=== PATIENT | male | born 1940 | race Caucasian/White ===

== ENCOUNTER 2019-02-05 19:32 | Emergency (ER) | payer MEDICARE, SELFPAY ==
[2019-02-05 19:45] VITALS: BP 197/87; PULSE 77; RESP 18; TEMP 36.9; O2SAT 94
--- NOTE | 2019-02-05 20:01 | DI.RAD_ITS ---
SYMPTOMS/DIAGNOSIS: COUGH, WHEEZE, SOB CHEST: Frontal and lateral views. Comparison 10/09/14. The heart size and pulmonary vasculature are within normal limits. The lungs are clear and well expanded. No effusions or pneumothoraces are identified. Degenerative changes are seen in the spine. The lungs do appear to be hyperinflated suggesting underlying COPD. IMPRESSION: No acute pulmonary process.
--- NOTE | 2019-02-05 20:04 | ED.GENADUL_ITS ---
Discharge Plan Disposition Patient Disposition: HOME Condition: Improving Discharge Details Chief Complaint: RespSymp Clinical Impression: COPD with acute exacerbation Primary Care Provider: Jinny Harper ED Provider: Jefferson Greenberg Home Meds and New Rx's Prescriptions: No Action Gold Allen Medicated 0.15-1 % powder TP PRNRF: 0 Shingrix (PF) 50 mcg/0.5 mL suspension for reconstitution 50 mcg IM ONCE Qty: 1 RF: 1 diphenhydramine HCl 25 MG capsule 1 - 2 cap PO PRN PRNRF: 0 albuterol sulfate [Ventolin HFA] 8 GM HFA aerosol inhaler 2 puff Inhalation QID PRNRF: 0 flunisolide 25 ML spray,non-aerosol 1 spray NS BID PRNRF: 0 cyanocobalamin (vitamin B-12) [Vitamin B-12] 1,000 MCG tablet 1,000 mcg PO 2 X /wk RF: 0 acetaminophen [Acetaminophen Extra Strength] 500 MG tablet 2 tab PO PRN RF: 0 aspirin [Aspirin Low-Strength] 81 MG tablet,chewable 81 mg PO DAILY Qty: 100 RF: 3 simvastatin 40 MG tablet 40 mg PO DAILY RF: 0 calcipotriene 0.005 % cream 1 applic TP BID RF: 0 Medical Decision Making 78-year-old male with 2 weeks of progressive cough with congestion that has ranged from black to yellow. Somewhat improved with use of inhaler since seeing in the office on February 01. Arrives tonight with worsening cough and congestion. He has a room air sats of 94% and is diffusely wheezy throughout. Differential diagnosis includes COPD exacerbation, bronchitis, pneumonitis. [facility] x-ray obtained, patient given inhaled DuoNeb updraft and prednisone. Chest x-ray does not reveal infiltrate or evidence of pneumonitis. Patient improved with DuoNeb updraft. I will add a burst of prednisone, which I do not feel will affect his ongoing topical treatment of her rash with sustainability specialist. Given his changed his sputum and chills I do feel he merits antibiotics at this time we will start him on a course of doxycycline. He understands follow-up and return precautions. He is stable for discharge home at this time. He may benefit from outpatient follow-up pulmonary function testing. Note: Created with [employer] software, it teacher errors may be present HPI General Mode of arrival: ambulatory . Date/Time Provider Initiated Documentation: 02/05/19 19:51 . Limitations to Documentation: no limitations . Information obtained by: patient . History of Present Illness 78 year old M presents to the emergency department with the chief complaint of Worsening cough over 2 weeks, with yellow sputum production, chills, sob, described as moderate, Quality is described as dull and constant, and is localized to the chest. Patient reports no radiation. Patient started experiencing this day(s) and it has been constant. No relieving factors improve symptom(s), No exacerbating factors reported . Patient notes cough and fever/chills. Patient did receive the following treatments prior to arrival, other (Inhaler twice ) Related Data Home Medications Medication Instructions Recorded Confirmed acetaminophen [Acetaminophen Extra 2 tab PO PRN 12/15/12 02/01/19 Strength] albuterol sulfate [Ventolin HFA] 2 puff INHALATION QID PRN puff 12/15/12 02/01/19 cyanocobalamin (vitamin B-12) 1,000 mcg PO 2 X /wk 12/15/12 02/05/19 [Vitamin B-12] diphenhydramine HCl 1 - 2 cap PO PRN PRN 12/15/12 02/05/19 flunisolide 1 spray NS BID PRN spray 12/15/12 02/05/19 aspirin [Aspirin Low-Strength] 81 mg PO DAILY #100 tab-cap 04/01/16 02/01/19 simvastatin 40 mg PO DAILY tab-cap 07/08/16 02/05/19 menthol-zinc oxide 0.15 %-1 % powder TP PRN gm 12/27/18 02/01/19 topical powder varicella-zoster glycoE vacc-AS01B 50 mcg IM ONCE #1 each 12/27/18 02/05/19 adj(PF) 50 mcg/0.5 mL IM susp, kit calcipotriene 0.005 % topical cream 1 applic TP BID 01/28/19 02/05/19 Previous Rx's Medication Instructions Recorded varicella-zoster glycoE vacc-AS01B 50 mcg IM ONCE #1 each 12/27/18 adj(PF) 50 mcg/0.5 mL IM susp, kit Allergies Allergy/AdvReac Type Severity Reaction Status Date / Time hydrocortisone Allergy Intermediate Contact Verified 02/05/19 19:51 Dermatitis Latex, Natural Rubber Allergy Intermediate Contact Verified 02/05/19 19:51 Dermatitis pregabalin [From Lyrica] Allergy Intermediate erythema Verified 02/05/19 19:51 chlorhexidine Allergy Mild RASH Verified 02/05/19 19:51 cyclosporine AdvReac Intermediate hypertensio Verified 02/05/19 19:51 n niacin AdvReac Unknown Verified 02/05/19 19:51 sulfamethoxazole AdvReac Unknown Diarrhea Verified 02/05/19 19:51 [From Bactrim] trimethoprim [From Bactrim] AdvReac Unknown Diarrhea Verified 02/05/19 19:51 FREE TEXT Allergy Intermediate contact Uncoded 02/05/19 19:51 dermatitis General Stated Complaint: RespSymp MEGHA: 3 Review of Systems Review of Systems 8 systems reviewed and otherwise negative [facility] Medical History Anxiety (Chronic) Hernia (Chronic) High cholesterol (Chronic) Hypertension (Chronic) Surgical History Colonoscopy - IV Sedation (08/21/14) Endoscopic Carpal Tunnel release (04/14/17) Endoscopic Carpal Tunnel release (04/21/17) Family History Mother No problems noted. Father No problems noted. Sister Diabetes Sister No problems noted. Brother Diabetes Brother No problems noted. Brother No problems noted. Brother No problems noted. 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 Pleasant, well groomed, interactive. HEAD: Normocephalic, atraumatic ENT: Mucous membranes moist, oropharynx unremarkable, External ear exam unremarkable EYES: PERRL, EOMI NECK: Full ROM, no SAVANA, no menigismus CHEST/RESP: Nontender, diminished bilaterally with diffuse end expiratory wheeze CARDIOVASCULAR: RRR, no murmur, rub layla. 2+ Rad pulse bilateral ABDOMEN: Soft, nontender, no mass. +Bowel sounds EXT: Full ROM, no edema, no rash Neuro: Grossly normal neurologic exam, conversant, interactive. Psych: Speech fluent, thoughts congruent, affect normal Course Vital Signs Temperature 36.9 C 02/05/19 19:45 Pulse 77 02/05/19 19:45 Respiratory Rate 18 02/05/19 19:45 Blood Pressure 197/87 H 02/05/19 19:45 Pulse Oximetry 94 L 02/05/19 19:45 Temperature 36.9 C 02/05/19 19:45 Temperature Source Skin 02/05/19 19:45 Pulse 77 02/05/19 19:45 Respiratory Rate 18 02/05/19 19:45 Respiratory Effort 02/05/19 19:54 Blood Pressure 197/87 H 02/05/19 19:45 Pulse Oximetry 94 L 02/05/19 19:45 Pain Level 7 02/05/19 19:45
[2019-02-05 20:22] VITALS: PULSE 66; RESP 18; RESP 4; O2SAT 96
[2019-02-05] MEDS: Albuterol/Ipratropium 3 ML UPD VIAL UPD (20:22)
[2019-02-05] MEDS: predniSONE 20 MG TAB 60 MG PO (20:22)
--- NOTE | 2019-02-05 20:26 | DI.VRAD_ITS ---
EXAM: XR Chest, 2 Views EXAM DATE/TIME: 02/05/2019 8:02 PM CLINICAL HISTORY: 78 years old, male; Signs and symptoms; Cough and shortness of breath and wheezing; Patient HX: Cough, wheeze, SOB TECHNIQUE: Imaging protocol: XR of the chest, 2 views. COMPARISON: CR CHEST 2 VIEWS PA,LAT 10/09/2014 2:31 PM FINDINGS: Lungs: Pulmonary hyperaeration. Pleural space: Unremarkable. No pleural effusion. No pneumothorax. Heart/Mediastinum: Unremarkable. No cardiomegaly. Bones/joints: Degenerative changes of the thoracic spine without acute osseous abnormality. IMPRESSION: Pulmonary hyperaeration. Dictated and Authenticated by: Robby Felder MD. Ordering:BALJEET Paulino MD
[2019-02-05 21:07] VITALS: PULSE 77; O2SAT 99
== END 2019-02-05 21:07 | disposition home or self-care (01) ==
PROVIDERS: Emergency Provider Emergency Medicine; PCP Nurse Practitioner
DX: J44.1 Chronic obstructive pulmonary disease with (acute) exacerbation (principal); R06.02 Shortness of breath; R50.9 Fever, unspecified; I10 Essential (primary) hypertension
CPT/HCPCS: 94640; 99283; 71046; J7512; J7620

== ENCOUNTER 2019-02-07 06:44 | Emergency (ER) | payer MEDICARE, SELFPAY ==
[2019-02-07 06:50] VITALS: BP 177/91; PULSE 60; RESP 16; TEMP 36.3; O2SAT 99
--- NOTE | 2019-02-07 07:00 | W.ED.GENAD ---
Discharge Plan Disposition Patient Disposition: HOME Condition: Improving Discharge Details Chief Complaint: RashLesion Clinical Impression: Urticarial rash Primary Care Provider: Jinny Harper ED Provider: Jefferson Greenberg Home Meds and New Rx's Prescriptions: New amoxicillin-pot clavulanate 875-125 mg tablet 1 tab PO BID 10 Days Qty: 20 RF: 0 Continued Gold Allen Medicated 0.15-1 % powder TP PRNRF: 0 Shingrix (PF) 50 mcg/0.5 mL suspension for reconstitution 50 mcg IM ONCE Qty: 1 RF: 1 diphenhydramine HCl 25 MG capsule 1 - 2 cap PO PRN PRNRF: 0 albuterol sulfate [Ventolin HFA] 8 GM HFA aerosol inhaler 2 puff Inhalation QID PRNRF: 0 flunisolide 25 ML spray,non-aerosol 1 spray NS BID PRNRF: 0 cyanocobalamin (vitamin B-12) [Vitamin B-12] 1,000 MCG tablet 1,000 mcg PO 2 X /wk RF: 0 acetaminophen [Acetaminophen Extra Strength] 500 MG tablet 2 tab PO PRN RF: 0 aspirin [Aspirin Low-Strength] 81 MG tablet,chewable 81 mg PO DAILY Qty: 100 RF: 3 simvastatin 40 MG tablet 40 mg PO DAILY RF: 0 calcipotriene 0.005 % cream 1 applic TP BID RF: 0 prednisone 50 mg tablet 50 mg PO DAILY Qty: 5 RF: 0 Discontinued doxycycline hyclate 100 mg capsule 100 mg PO BID 10 Days Qty: 20 RF: 0 Discharge Instructions Instructions: Urticaria (ED) Additional Instructions: Stop the doxycycline. If you have persistent cough, develop a fever, begin the Augmentin as we discussed. Continue the regular medications. Continue the prescribed prednisone. May continue the use of Benadryl as needed. Return for any acute concern Medical Decision Making 78-year-old male who I saw in the emergency department 2 days ago for URI with COPD exacerbation. He was placed on prednisone and doxycycline. He states that he has had dramatic improvement of his cough and is not had any shortness of breath or wheezing. Since beginning the doxycycline he is noticed 1 day of bilateral upper extremity pruritic rash. No drooling or change to voice, no difficulty with swallowing. This may be sun sensitivity from the doxycycline or intolerance of the antibiotic. Discussed with him that I will have him stop the doxycycline, continue the prednisone, and he will be provided with a prescription for Augmentin should he have recurrent cough or fever. He understands the outpatient plan of care and is stable for discharge to home at this time. HPI General Mode of arrival: ambulatory. Date/Time Provider Initiated Documentation: 02/07/19 06:52. Limitations to Documentation: no limitations. Information obtained by: patient. History of Present Illness 78 year old M presents to the emergency department with the chief complaint of Bilateral arm rash, described as similar to prior episodes, Quality is described as constant, and is localized to the left, right and upper extremity. and it has been other (Improving). No relieving factors improve symptom(s), No exacerbating factors reported . Patient notes no other symptoms. and rash; denies cough. Patient did receive the following treatments prior to arrival, none Related Data Home Medications Medication Instructions Recorded Confirmed acetaminophen [Acetaminophen Extra 2 tab PO PRN 12/15/12 02/07/19 Strength] albuterol sulfate [Ventolin HFA] 2 puff INHALATION QID PRN puff 12/15/12 02/07/19 cyanocobalamin (vitamin B-12) 1,000 mcg PO 2 X /wk 12/15/12 02/07/19 [Vitamin B-12] diphenhydramine HCl 1 - 2 cap PO PRN PRN 12/15/12 02/07/19 flunisolide 1 spray NS BID PRN spray 12/15/12 02/07/19 aspirin [Aspirin Low-Strength] 81 mg PO DAILY #100 tab-cap 04/01/16 02/07/19 simvastatin 40 mg PO DAILY tab-cap 07/08/16 02/07/19 menthol-zinc oxide 0.15 %-1 % powder TP PRN gm 12/27/18 02/01/19 topical powder varicella-zoster glycoE vacc-AS01B 50 mcg IM ONCE #1 each 12/27/18 02/07/19 adj(PF) 50 mcg/0.5 mL IM susp, kit calcipotriene 0.005 % topical cream 1 applic TP BID 01/28/19 02/07/19 prednisone 50 mg PO DAILY #5 tab 02/05/19 02/07/19 amoxicillin-pot clavulanate 1 tab PO BID 10 Days #20 tab 02/07/19 Previous Rx's Medication Instructions Recorded varicella-zoster glycoE vacc-AS01B 50 mcg IM ONCE #1 each 12/27/18 adj(PF) 50 mcg/0.5 mL IM joce bowens prednisone 50 mg PO DAILY #5 tab 02/05/19 amoxicillin-pot clavulanate 1 tab PO BID 10 Days #20 tab 02/07/19 Allergies Allergy/AdvReac Type Severity Reaction Status Date / Time hydrocortisone Allergy Intermediate Contact Verified 02/07/19 06:54 Dermatitis Latex, Natural Rubber Allergy Intermediate Contact Verified 02/07/19 06:54 Dermatitis pregabalin [From Lyrica] Allergy Intermediate erythema Verified 02/07/19 06:54 chlorhexidine Allergy Mild RASH Verified 02/07/19 06:54 cyclosporine AdvReac Intermediate hypertensio Verified 02/07/19 06:54 n niacin AdvReac Unknown Verified 02/07/19 06:54 sulfamethoxazole AdvReac Unknown Diarrhea Verified 02/07/19 06:54 [From Bactrim] trimethoprim [From Bactrim] AdvReac Unknown Diarrhea Verified 02/07/19 06:54 FREE TEXT Allergy Intermediate contact Uncoded 02/07/19 06:54 dermatitis General Stated Complaint: RashLesion MEGHA: 4 Review of Systems Review of Systems 6 systems reviewed and otherwise negative [facility] Social History Smoking/Tobacco Use Status: Never Alcohol Intake: current Alcohol Intake frequency: holidays/special occasions only Drug use: Never Household members: spouse Housing: house Number of Children: 2 number of grandchildren: 4 Communication Needs: None current occupation: retired What is your relationship status?: Panel score (0-1 are the most socially isolated patients): 1 What type of physical activity do you participate in: walking Duration: 30-45 minutes/day Seatbelt use: always 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 Pleasant, well groomed, interactive. HEAD: Normocephalic, atraumatic ENT: Mucous membranes moist, oropharynx unremarkable, External ear exam unremarkable EYES: PERRL, EOMI NECK: Full ROM, no SAVANA, no menigismus CHEST/RESP: Nontender, clear to auscultation bilateral, no wheeze/rhonchi/rales CARDIOVASCULAR: RRR, no murmur, rub layla. 2+ Rad pulse bilateral EXT: Full ROM, no edema, discrete blanching erythematous raised rash on bilateral anterior medial humerus Neuro: Grossly normal neurologic exam, conversant, interactive. Psych: Speech fluent, thoughts congruent, affect normal Course Vital Signs Temperature 36.3 C L 02/07/19 06:50 Pulse 60 02/07/19 06:50 Respiratory Rate 16 02/07/19 06:50 Blood Pressure 177/91 H 02/07/19 06:50 Pulse Oximetry 99 02/07/19 06:50 Temperature 36.3 C L 02/07/19 06:50 Temperature Source Skin 02/07/19 06:50 Pulse 60 02/07/19 06:50 Respiratory Rate 16 02/07/19 06:50 Respiratory Effort Non-Labored 02/07/19 06:50 Blood Pressure 177/91 H 02/07/19 06:50 Blood Pressure Position Sitting 02/07/19 06:50 Pulse Oximetry 99 02/07/19 06:50 Oxygen Delivery Method Room Air 02/07/19 06:50 Oxygen Flow Rate 0 02/07/19 06:50 Pain Level 0 02/07/19 06:50
--- NOTE | 2019-02-07 07:03 | ED.GENADUL_ITS ---
Discharge Plan Disposition Patient Disposition: HOME Condition: Improving Discharge Details Chief Complaint: RashLesion Clinical Impression: Urticarial rash Primary Care Provider: Jinny Harper ED Provider: Jefferson Greenberg Home Meds and New Rx's Prescriptions: New amoxicillin-pot clavulanate 875-125 mg tablet 1 tab PO BID 10 Days Qty: 20 RF: 0 Continued Gold Allen Medicated 0.15-1 % powder TP PRNRF: 0 Shingrix (PF) 50 mcg/0.5 mL suspension for reconstitution 50 mcg IM ONCE Qty: 1 RF: 1 diphenhydramine HCl 25 MG capsule 1 - 2 cap PO PRN PRNRF: 0 albuterol sulfate [Ventolin HFA] 8 GM HFA aerosol inhaler 2 puff Inhalation QID PRNRF: 0 flunisolide 25 ML spray,non-aerosol 1 spray NS BID PRNRF: 0 cyanocobalamin (vitamin B-12) [Vitamin B-12] 1,000 MCG tablet 1,000 mcg PO 2 X /wk RF: 0 acetaminophen [Acetaminophen Extra Strength] 500 MG tablet 2 tab PO PRN RF: 0 aspirin [Aspirin Low-Strength] 81 MG tablet,chewable 81 mg PO DAILY Qty: 100 RF: 3 simvastatin 40 MG tablet 40 mg PO DAILY RF: 0 calcipotriene 0.005 % cream 1 applic TP BID RF: 0 prednisone 50 mg tablet 50 mg PO DAILY Qty: 5 RF: 0 Discontinued doxycycline hyclate 100 mg capsule 100 mg PO BID 10 Days Qty: 20 RF: 0 Discharge Instructions Instructions: Urticaria (ED) Additional Instructions: Stop the doxycycline. If you have persistent cough, develop a fever, begin the Augmentin as we discussed. Continue the regular medications. Continue the prescribed prednisone. May continue the use of Benadryl as needed. Return for any acute concern Medical Decision Making 78-year-old male who I saw in the emergency department 2 days ago for URI with COPD exacerbation. He was placed on prednisone and doxycycline. He states that he has had dramatic improvement of his cough and is not had any shortness of breath or wheezing. Since beginning the doxycycline he is noticed 1 day of bilateral upper extremity pruritic rash. No drooling or change to voice, no difficulty with swallowing. This may be sun sensitivity from the doxycycline or intolerance of the antibiotic. Discussed with him that I will have him stop the doxycycline, continue the prednisone, and he will be provided with a prescription for Augmentin should he have recurrent cough or fever. He understands the outpatient plan of care and is stable for discharge to home at this time. HPI General Mode of arrival: ambulatory . Date/Time Provider Initiated Documentation: 02/07/19 06:52 . Limitations to Documentation: no limitations . Information obtained by: patient . History of Present Illness 78 year old M presents to the emergency department with the chief complaint of Bilateral arm rash, described as similar to prior episodes, Quality is described as constant, and is localized to the left, right and upper extremity. and it has been other (Improving). No relieving factors improve symptom(s), No exacerbating factors reported . Patient notes no other symptoms. and rash; denies cough. Patient did receive the following treatments prior to arrival, none Related Data Home Medications Medication Instructions Recorded Confirmed acetaminophen [Acetaminophen Extra 2 tab PO PRN 12/15/12 02/07/19 Strength] albuterol sulfate [Ventolin HFA] 2 puff INHALATION QID PRN puff 12/15/12 02/07/19 cyanocobalamin (vitamin B-12) 1,000 mcg PO 2 X /wk 12/15/12 02/07/19 [Vitamin B-12] diphenhydramine HCl 1 - 2 cap PO PRN PRN 12/15/12 02/07/19 flunisolide 1 spray NS BID PRN spray 12/15/12 02/07/19 aspirin [Aspirin Low-Strength] 81 mg PO DAILY #100 tab-cap 04/01/16 02/07/19 simvastatin 40 mg PO DAILY tab-cap 07/08/16 02/07/19 menthol-zinc oxide 0.15 %-1 % powder TP PRN gm 12/27/18 02/01/19 topical powder varicella-zoster glycoE vacc-AS01B 50 mcg IM ONCE #1 each 12/27/18 02/07/19 adj(PF) 50 mcg/0.5 mL IM susp, kit calcipotriene 0.005 % topical cream 1 applic TP BID 01/28/19 02/07/19 prednisone 50 mg PO DAILY #5 tab 02/05/19 02/07/19 amoxicillin-pot clavulanate 1 tab PO BID 10 Days #20 tab 02/07/19 Previous Rx's Medication Instructions Recorded varicella-zoster glycoE vacc-AS01B 50 mcg IM ONCE #1 each 12/27/18 adj(PF) 50 mcg/0.5 mL IM joce bowens prednisone 50 mg PO DAILY #5 tab 02/05/19 amoxicillin-pot clavulanate 1 tab PO BID 10 Days #20 tab 02/07/19 Allergies Allergy/AdvReac Type Severity Reaction Status Date / Time hydrocortisone Allergy Intermediate Contact Verified 02/07/19 06:54 Dermatitis Latex, Natural Rubber Allergy Intermediate Contact Verified 02/07/19 06:54 Dermatitis pregabalin [From Lyrica] Allergy Intermediate erythema Verified 02/07/19 06:54 chlorhexidine Allergy Mild RASH Verified 02/07/19 06:54 cyclosporine AdvReac Intermediate hypertensio Verified 02/07/19 06:54 n niacin AdvReac Unknown Verified 02/07/19 06:54 sulfamethoxazole AdvReac Unknown Diarrhea Verified 02/07/19 06:54 [From Bactrim] trimethoprim [From Bactrim] AdvReac Unknown Diarrhea Verified 02/07/19 06:54 FREE TEXT Allergy Intermediate contact Uncoded 02/07/19 06:54 dermatitis General Stated Complaint: RashLesion MEGHA: 4 Review of Systems Review of Systems 6 systems reviewed and otherwise negative [facility] Social History Smoking/Tobacco Use Status: Never Alcohol Intake: current Alcohol Intake frequency: holidays/special occasions only Drug use: Never Household members: spouse Housing: house Number of Children: 2 number of grandchildren: 4 Communication Needs: None current occupation: retired What is your relationship status?: Panel score (0-1 are the most socially isolated patients): 1 What type of physical activity do you participate in: walking Duration: 30-45 minutes/day Seatbelt use: always Drive 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 Pleasant, well groomed, interactive. HEAD: Normocephalic, atraumatic ENT: Mucous membranes moist, oropharynx unremarkable, External ear exam unremarkable EYES: PERRL, EOMI NECK: Full ROM, no SAVANA, no menigismus CHEST/RESP: Nontender, clear to auscultation bilateral, no wheeze/rhonchi/rales CARDIOVASCULAR: RRR, no murmur, rub layla. 2+ Rad pulse bilateral EXT: Full ROM, no edema, discrete blanching erythematous raised rash on bilateral anterior medial humerus Neuro: Grossly normal neurologic exam, conversant, interactive. Psych: Speech fluent, thoughts congruent, affect normal Course Vital Signs Temperature 36.3 C L 02/07/19 06:50 Pulse 60 02/07/19 06:50 Respiratory Rate 16 02/07/19 06:50 Blood Pressure 177/91 H 02/07/19 06:50 Pulse Oximetry 99 02/07/19 06:50 Temperature 36.3 C L 02/07/19 06:50 Temperature Source Skin 02/07/19 06:50 Pulse 60 02/07/19 06:50 Respiratory Rate 16 02/07/19 06:50 Respiratory Effort Non-Labored 02/07/19 06:50 Blood Pressure 177/91 H 02/07/19 06:50 Blood Pressure Position Sitting 02/07/19 06:50 Pulse Oximetry 99 02/07/19 06:50 Oxygen Delivery Method Room Air 02/07/19 06:50 Oxygen Flow Rate 0 02/07/19 06:50 Pain Level 0 02/07/19 06:50
== END 2019-02-07 07:08 | disposition home or self-care (01) ==
PROVIDERS: Emergency Provider Emergency Medicine; PCP Nurse Practitioner
DX: L50.9 Urticaria, unspecified (principal); J44.9 Chronic obstructive pulmonary disease, unspecified
CPT/HCPCS: 99283

== ENCOUNTER → 2019-04-15 09:48 | Outpatient (BNVA) | payer MEDICARE, SELFPAY | PROVIDERS: PCP Nurse Practitioner; Referring Provider Nurse Practitioner; Visit Provider Physical Therapy Assistant | DX: Z12.11 Encounter for screening for malignant neoplasm of colon (principal); Z86.010 Personal history of colon polyps; I10 Essential (primary) hypertension ==

== ENCOUNTER 2019-06-13 12:01 | Outpatient (CLI) | payer MEDICARE, SELFPAY ==
--- NOTE | 2019-06-13 11:30 | DI.RAD_ITS ---
EXAM: XR CHEST 2V PA LATERAL CLINICAL HISTORY: cough, SOB, wheeze J44.9 COPD, R06.2 WHEEZING, R05 COUGH. TECHNIQUE: 2D digital imaging was performed. COMPARISON: CHEST 2 VIEWS PA,LAT from 10/09/2014 XR CHEST 2V PA LATERAL from 02/05/2019 FINDINGS: LUNGS: No focal consolidating infiltrates are present. No pleural effusion or pneumothorax is identi fied. The lungs appear hyperinflated with flattened diaphragms suggesting underlying COPD. HEART: Normal. MEDIASTINUM: The pulmonary vasculature appears stable and within normal limits. OTHER FINDINGS:Age-appropriate degenerative changes are seen in the spine. IMPRESSION: No acute pulmonary findings.
== END 2019-06-13 12:21 ==
PROVIDERS: PCP Nurse Practitioner; Visit Provider Nurse Practitioner
DX: R06.2 Wheezing (principal); R05 Cough; J44.9 Chronic obstructive pulmonary disease, unspecified; R06.02 Shortness of breath
CPT/HCPCS: 71046

== ENCOUNTER 2019-06-20 02:54 | Outpatient (CLI) | payer MEDICARE, SELFPAY ==
--- NOTE | 2019-06-20 | PFT_ITS ---
PULMONARY FUNCTION TEST REPORT Patient - Tim Wooten DATE OF SERVICE June 20, 2019 REQUESTING PROVIDER Jinny Harper NP INTERPRETATION OF STUDY Spirometry shows mild obstructive airways disease with no significant bronchodilator response. LUNG VOLUMES - Lung volumes show no evidence of restriction. DIFFUSION CAPACITY- Somewhat elevated. AIRWAY RESISTANCE - Elevated. IMPRESSION Mild obstructive airways disease with no significant bronchodilator response. This is associated with elevated diffusion capacity and airways resistance, this constellation of finding can be seen in asthma. If the diagnosis of asthma is in question proceeding with Methacholine challenge testing may prove to be useful. Latisha Sahu M.D. VANDANA/ T- 06/22/2019
[2019-06-20] MEDS: Inhaler, Assist Device 1 EACH MC (11:18)
[2019-06-20] MEDS: Albuterol HFA 18 GM 200 PUFF INH IH (11:18)
== END 2019-06-20 03:14 ==
PROVIDERS: PCP Nurse Practitioner; Visit Provider Nurse Practitioner
DX: J44.9 Chronic obstructive pulmonary disease, unspecified (principal); R05 Cough; R06.2 Wheezing
CPT/HCPCS: 94060; 94150; 94726; 94729

== ENCOUNTER 2021-08-16 03:41 | Outpatient (CLI) | payer MEDICARE, SELFPAY ==
[2021-08-16 12:39] LABS: Source Nasal/Nares
[2021-08-16 15:55] LABS: COVID-19 PCR Negative (Negative)
== END 2021-08-16 03:42 | disposition home or self-care (01) ==
LOC: LBO 03:41
PROVIDERS: PCP Nurse Practitioner; Visit Provider Ophthalmology
DX: Z20.822 Contact with and (suspected) exposure to COVID-19 (principal); Z01.818 Encounter for other preprocedural examination
CPT/HCPCS: 87635

== ENCOUNTER 2021-08-19 11:16 | Day surgery (SDC) | payer OTHER, MEDICARE, SELFPAY ==
[2021-08-19 11:26] VITALS: BP 148/82; PULSE 62; RESP 18; TEMP 36.5; O2SAT 98
[2021-08-19] MEDS: Tropicam./Phenyleph. (1/2.5%) 5 ML BTL OS ×3 (11:52→12:06)
--- NOTE | 2021-08-19 11:53 | W.ANESPRE ---
General Info Date of Service Date Performed: 08/19/21 Height: 5 ft 8 in Weight: 75.2 kg Body Mass Index (BMI): 25.2 Surgical Procedure: Operation Date: 08/19/21 14:40 Proposed Procedures Side Surgeon p Cataract Extraction with IOL Implant Left Ty Suh MD Meds Allergies and Home Medications Allergies Allergy/AdvReac Type Severity Reaction Status Date / Time hydrocortisone Allergy Intermediate Contact Verified 08/19/21 11:43 Dermatitis Latex, Natural Rubber Allergy Intermediate Contact Verified 08/19/21 11:43 Dermatitis pregabalin [From Lyrica] Allergy Intermediate erythema Verified 08/19/21 11:43 chlorhexidine Allergy Mild RASH Verified 08/19/21 11:43 cyclosporine AdvReac Intermediate hypertensio Verified 08/19/21 11:43 n niacin AdvReac Unknown pt unsure Verified 08/19/21 11:43 sulfamethoxazole AdvReac Unknown Diarrhea Verified 08/19/21 11:43 [From Bactrim] trimethoprim [From Bactrim] AdvReac Unknown Diarrhea Verified 08/19/21 11:43 FREE TEXT Allergy Intermediate contact Uncoded 08/19/21 11:43 dermatitis Home Medication Medication Instructions Recorded acetaminophen [Acetaminophen Extra 2 tab PO PRN 12/15/12 Strength] albuterol sulfate [Ventolin HFA] 2 puff INHALATION QID PRN puff 12/15/12 cyanocobalamin (vitamin B-12) 1,000 mcg PO 2 X /wk 12/15/12 [Vitamin B-12] flunisolide 1 spray NS BID PRN spray 12/15/12 aspirin [Aspirin Low-Strength] 81 mg PO DAILY #100 tab-cap 04/01/16 simvastatin 40 mg PO DAILY tab-cap 07/08/16 menthol-zinc oxide 0.15 %-1 % 1 powder TP DAILY gm 12/27/18 topical powder calcipotriene 0.005 % topical cream 1 applic TP BID PRN 01/28/19 amlodipine 2.5 mg tablet 2.5 mg PO DAILY 05/25/19 budesonide-formoterol HFA 80 1 puff IH BID gm 01/27/20 mcg-4.5 mcg/actuation aerosol inhaler ketoconazole 2 % topical cream 1 applic TOPICAL BID PRN 06/15/20 triamcinolone acetonide 0.1 % 1 applic TOPICAL DAILY 06/15/20 topical cream Current Visit Medications: Current Medications Generic Name Dose Route Start Last Admin Trade Name Freq PRN Reason Stop Dose Admin Acetaminophen 1,000 mg 08/19/21 06:00 Acetaminophen 500 Mg Tab PO Q4H PRN PRN Miscellaneous Medication 0 ml 08/19/21 06:00 Prednisolone 1%, Moxifloxacin 0.5%, Nepafenac 0.1% 5ml Btl OS DIRECTED [facility] Miscellaneous Medication 0 ml 08/19/21 06:00 Tropicam./Phenyleph. 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 Disorder of vitamin B12 04/14/07 E53.8 Adenoma of large intestine 06/09/00 D12.6 Metabolic syndrome X 09/29/11 E88.81 Elevated blood pressure reading 04/01/16 R03.0 Hyponatremia 08/07/14 E87.1 Allergic contact dermatitis L23.9 Anxiety state 09/29/11 F41.1 Bilateral carpal tunnel syndrome 01/02/17 G56.03 Elevated blood pressure reading 04/01/16 R03.0 Pure hypercholesterolemia 02/06/06 E78.00 Medical History Active Problem List Posterior subcapsular age-related cataract of left eye (Acute) Nuclear sclerotic cataract of left eye (Acute) Dermatitis (Acute) COPD (chronic obstructive pulmonary disease) (Chronic) Hypertension (Chronic) Environmental allergies (Acute) History of adenomatous polyp of colon (Acute) 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) Disorder of vitamin B12 (Acute 04/14/07) Adenoma of large intestine (Acute 06/09/00) Metabolic syndrome X (Acute 09/29/11) Elevated blood pressure reading (Acute 04/01/16) Hyponatremia (Acute 08/07/14) Allergic contact dermatitis (Acute) Anxiety state (Acute 09/29/11) Bilateral carpal tunnel syndrome (Acute 01/02/17) Elevated blood pressure reading (Acute 04/01/16) Pure hypercholesterolemia (Acute 02/06/06) Medical History Anxiety Cough Hernia High cholesterol Idiopathic peripheral neuropathy (09/29/11) feet numb; Umishankar; [place] 05/20;small fiber, NUMB>>PAIN Kidney stone (09/29/11) Low back pain with sciatica (09/29/11) Regular check-up (12/24/15) yearly in June Umbilical hernia (06/08/12) small, assymptomatic Wheeze Surgical History Surgical History Colonoscopy - IV Sedation (08/21/14) Dr Perez Endoscopic Carpal Tunnel release (04/14/17) [facility] Dr Ramos; both Endoscopic Carpal Tunnel release (04/21/17) [facility] Dr Ramos; both Tobacco Smoking/Tobacco Use Status: Never Alcohol Alcohol Intake: current Alcohol intake frequency: holidays/special occasions only Substance Use Substance use: Never Substance use type: does not use Vital Signs and Lab Results Vital Signs Most Recent Vital Signs in EMR: Most Recent Vital Signs Temp Pulse Resp BP Pulse Ox 36.5 C 62 18 148/82 H 98 08/19/21 11:26 08/19/21 11:26 08/19/21 11:26 08/19/21 11:26 08/19/21 11:26 Lab Results Blood Type / Crossmatch: No Data to Display Complete Blood Count: No Data to Display Complete Metabolic Panel: No Data to Display Liver Function Panel: No Data to Display Coagulation Panel: No Data to Display Cardiac Panel: No Data to Display Arterial Blood Gas: No Data to Display Venous Blood Gas: No Data to Display Pancreas Panel: No Data to Display Thyroid Panel: No Data to Display Infectious Disease: Coronavirus (COVID-19)(PCR) Negative (Negative) 08/16/21 08:56 08/16/21 Coronavirus 2019 Source Nasal/Nares 08/16/21 08:56 08/16/21 Blood Cultures: No Data to Display Toxicology Panel: No Data to Display Anesthesia Assessment and Plan Anesthesia History Personal History: No History of Anesthesia Complications Family History: No Family History of Anesthesia Complications Exercise Tolerance Exercise Tolerance: Metabolic Equivalents>4 Pertinent Negatives Pertinent Negatives: No Symptoms of GERD, No Major Cardiovascular Symptoms or Complaints, No Major Pulmonary Symptoms or Complaints and No History of CVA/TIA Cardiac & Pulmonary Exam Cardiac Exam: Normal S1/S2 Heart Sounds Pulmonary Exam: Clear Bilateral Breath Sounds Implantable Cardiac Device Does patient have a Pacemaker or an ICD?: No Airway Exam Known Difficult Airway: No Mallampati Class: 1 Mouth Opening: Normal (> 3cm) Thyromental Distance: Greater than 3 cm Neck Range of Motion: Full ROM Neck Circumference: Normal Teeth Condition: Normal Dentition and Removable Dentures/Plates Upper Airway Comments: Wayne soriano #11 ASA Classification ASA Score: ASA 2 Emergency Case?: No NPO Status NPO Status: NPO Clears >2 hours, Solids >8 hours Anesthesia Plan Resuscitation Status: Full Code Anesthesia Technique: MAC Anesthesia Airway Planned: Natural Airway Monitors Used: Standard Monitors
[2021-08-19 11:56] VITALS: BMI 25.2
[2021-08-19] MEDS: Tetracaine 0.5% 4 ML BTL OS (12:10)
[2021-08-19] MEDS: Povidone-Iodine Ophth 30 ML BTL (12:13)
[2021-08-19] MEDS: Lidocaine 2% Jelly 6 ML SYR (12:13)
[2021-08-19] MEDS: Balanced Salt Soln.-PLUS 500 ML BAG (12:18)
[2021-08-19] MEDS: Duovisc Viscoelastic System EACH 1 EACH (12:19)
[2021-08-19 12:39] VITALS: BP 158/83; PULSE 59; RESP 16; TEMP 36.5; O2SAT 98
--- NOTE | 2021-08-19 12:41 | W.ANESPOSTOP ---
Postoperative Evaluation Date, Time and Location Date Performed: 08/19/21 Time Performed: 12:41 Patient Location: Day Surgery Unit Vital Signs Most Recent Imported Vital Signs: Most Recent Vital Signs Temp Pulse Resp BP Pulse Ox 36.5 C 62 18 148/82 H 98 08/19/21 11:26 08/19/21 11:26 08/19/21 11:26 08/19/21 11:26 08/19/21 11:26 Most Recent Manually Entered Vital Signs: Adult Blood Pressure: 158/83 Heart Rate: 58 Respirations: 10 Oxygen Saturation (%): 97 Temperature (C): 36.3 C Pain Score (0-10 Scale): 0 Pain Score Most Recent Pain Score: Most Recent Pain Score Pain Level 0 08/19/21 11:26 Assessment Mental Status: Awake (Alert & Oriented to Patient Baseline) Airway and Respiratory Function: Patent airway with normal (patient baseline) respiratory exam Cardiovascular Function: Hemodynamically Stable Hydration Status: Adequately Hydrated Nausea & Vomiting: No Nausea or Vomiting Pain: Pt. Denies Any Pain Peripheral Nerve Block: Patient did not receive a nerve block
[2021-08-19 12:42] VITALS: BP 158/83; PULSE 58; RESP 10; TEMPC 36.3; O2SAT 97
--- NOTE | 2021-08-19 12:42 | W.PM.DSUDISC ---
Discharge Plan Disposition Patient Disposition: HOME Condition: Good Discharge Details Attending Provider: Ty Suh Primary Care Provider: Jinny Harper Home Meds and New Rx's Prescriptions: No Action Gold Allen Medicated 0.15-1 % powder 1 powder TP DAILY RF: 0 amlodipine 2.5 mg tablet 2.5 mg PO DAILY RF: 0 albuterol sulfate [Ventolin HFA] 8 GM HFA aerosol inhaler 2 puff Inhalation QID PRNRF: 0 flunisolide 25 ML spray,non-aerosol 1 spray NS BID PRNRF: 0 cyanocobalamin (vitamin B-12) [Vitamin B-12] 1,000 MCG tablet 1,000 mcg PO 2 X /wk RF: 0 acetaminophen [Acetaminophen Extra Strength] 500 MG tablet 2 tab PO PRN RF: 0 aspirin [Aspirin Low-Strength] 81 MG tablet,chewable 81 mg PO DAILY Qty: 100 RF: 3 simvastatin 40 MG tablet 40 mg PO DAILY RF: 0 calcipotriene 0.005 % cream 1 applic TP BID PRNRF: 0 budesonide-formoterol [Symbicort] 80-4.5 mcg/actuation HFA aerosol inhaler 1 puff IH BID RF: 0 ketoconazole 2 % cream 1 applic topical BID PRNRF: 0 triamcinolone acetonide 0.1 % cream 1 applic topical DAILY RF: 0 Discharge Instructions Stand Alone Forms: Post-op Topical Cataract, Press Ganey (DSU) Discharge Orders Discharge Orders: Discharge Order (Routine); Ordered 08/19/21 Ordered By: Ty Suh DS: Diagnosis Discharge Diagnosis (1) Posterior subcapsular age-related cataract of left eye: Status: Resolved (2) Nuclear sclerotic cataract of left eye: Status: Resolved
--- NOTE | 2021-08-19 12:43 | ROE_ITS ---
Date of service: 08/19/21 Time of Service: 12:43 Operative Note Operative Note DATE OF PROCEDURE: 08/19/21 PRE-OP DIAGNOSIS: Nuclear/posterior subcapsular cataract, left eye POST-OP DIAGNOSIS: same PROCEDURE: Cataract extraction using phacoemulsification with intraocular lens implant, left eye SURGEON: Ty Suh ANESTHESIA TYPE: Local By Surgeon and MAC Refer to Anesthesia Record PATHOLOGY: none sent COMPLICATIONS: None Patient was transported to: same day Patient's condition: stable Implants: Long and Long / [employer] Tecnis [id number] Indications: Progressive decreased vision due to cataract, left eye Procedure Description: CATARACT SURGERY OPERATIVE REPORT PREOPERATIVE DIAGNOSIS: 1. Nuclear/posterior subcapsular cataract, left eye POSTOPERATIVE DIAGNOSIS: Same OPERATION: 1. Cataract extraction using phacoemulsification with posterior chamber intraocular lens implant, left eye. IOL: IOL Cbx Operator/Model: Long & Long / KRANTHI Tecnis [id number] IOL Power: + 19.5 diopters IOL Serial Number: [id number] Optic Diameter: 6.0 mm Haptic/Overall Diameter: 13.0 mm PHACO INFO: Kwan EpiEPurion Vision System with OZil and Active Fluidics Cumulative Dispersed Energy (CDE): 10.92 seconds SURGEON: Ty Suh MD, KATHRIN ANESTHESIA: Monitored A [facility] (MAC), with local sub-tenon's anesthetic infiltration COMPLICATIONS: None SPECIMENS: None INDICATIONS FOR PROCEDURE: The patient is a 81-year-old gentleman with history of diminished visual acuity in his left eye secondary to the development of nuclear/posterior subcapsular cataract. He is significantly symptomatic that he desires cataract surgery and attempt to improve and maximize his vision. PROCEDURE: The correct surgical eye was identified and marked as the left eye and the pupil was dilated in the preoperative area using mydriatics and cycloplegics. The dilated pupil size was 6.0 mm. He elected to proceed without oral sedation. The patient was brought to the operating room where cardiopulm onary monitoring was instituted and surgical time-out was performed, confirming the correct operative eye and IOL power. Topical anesthesia was administered and ophthalmic povidone-iodine 5% was ins tilled into the conjunctival fornices. Lidocaine gel was applied to the cornea and the ekaterina-ocular area was prepped with Betadine 10% solution and draped in the usual sterile fashion for intraocular surgery, including an aperture drape. A Tegaderm transparent film dressing was cut in half and used to cover the lashes and lid margins. Care was taken to sequester the lashes and lid margins under the Tegaderm dressing. A lid speculum was placed between the lids of the operative eye and the Elissa-Jayy operating microscope was maneuvered into position. Fredy scissors were then used to make a conjunctival buttonhole approximately 6mm posterior to the limbus in the inferonasal quadrant. Blunt dissection was carried out to expose bare sclera, and a blunt-tipped sub-tenon?s anesthesia can nula was introduced and passed posteriorly along the globe where non-preserved plain lidocaine was injected into posterior sub-Tenon?s space. A sideport knife was used to make a paracentesis port superiorly/superiortemporally. Intraocular phenylephrine/lidocaine was injected int the anterior chamber.. The anterior chamber was filled with viscoelastic. A 2.4mm keratome knife was used to create a half-thickness groove at the limbus and then to construct a three-plane near- clear corneal tunnel extending 2.0mm into clear cornea at the 3:00 position. A flap was raised on the anterior capsule and capsulorhexis forceps were used to complete a continuous curvilinear capsulorhexis of 5.0 mm. Balanced salt solution was then used to perform cortical cleaving hydrodissection and nuclear hydrodelineation until the lens could be freely rotated within the capsular bag. The lens nucleus was then disassembled and removed within the capsular bag and iris plane using phacoemulsification. Residual cortical material was removed using the 45-degree angled silicone I/A tip with 0.3mm port. The posterior capsule was carefully polished to remove as much residual lens epithelial cells as safely possible. The capsular bag was then inflated and the anterior chamber deepened with viscoelastic. The lens implant described above was inserted into the capsular bag using the KRANTHI [place] Injector. A Kuglen hook was used to dial the IOL into position. Residual viscoelastic was then removed first from posterior to the IOL, then from the anterior chamber using the I/A handpiece. The lens implant was noted to center nicely within the capsular bag. The incisions were stromally hydrated, and the anterior chamber was reformed using BSS. Then 0.5cc of moxifloxacin 1.0mg/ml were injected into the capsular bag and anterior chamber. The incisions were checked with a Weck spear and found to be secure. Several drops of ophthalmic povidone-iodine 5% were then applied to the eye followed by two drops of Imprimis combination prednisolone/moxifloxacin/nepafenac solution. The drapes were removed and a clear plastic protective eye shield was placed over the eye. The patient was then returned to Same Day Surgery in stable condition.
== END 2021-08-19 13:12 | disposition home or self-care (01) ==
PROVIDERS: PCP Nurse Practitioner; Visit Provider Ophthalmology
PROC: (CPT 66984; principal; 2021-08-19 14:30)
DX: H25.042 Posterior subcapsular polar age-related cataract, left eye (principal); J44.9 Chronic obstructive pulmonary disease, unspecified; E53.8 Deficiency of other specified B group vitamins; E78.00 Pure hypercholesterolemia, unspecified; I10 Essential (primary) hypertension
CPT/HCPCS: 66984; V2632

== ENCOUNTER 2021-12-30 08:54 | Day surgery (SDC) | payer OTHER, SELFPAY ==
[2021-12-30] MEDS: Tropicam./Phenyleph. (1/2.5%) 5 ML BTL OD ×3 (09:29→10:02)
[2021-12-30 09:52] VITALS: BP 155/84; PULSE 64; RESP 16; TEMP 36.5; O2SAT 97
--- NOTE | 2021-12-30 10:04 | ANES.PREOP_ITS ---
General Info Date of Service Date Performed: 12/30/21 Height: 5 ft 9 in Weight: 72.6 kg Body Mass Index (BMI): 23.6 Surgical Procedure: Operation Date: 12/30/21 10:40 Proposed Procedure Side Surgeon p Cataract Extraction with IOL Implant Right Ty Suh MD Meds Allergies and Home Medications Allergies Allergy/AdvReac Type Severity Reaction Status Date / Time hydrocortisone Allergy Intermediate Contact Verified 12/30/21 09:39 Dermatitis Latex, Natural Rubber Allergy Intermediate Contact Verified 12/30/21 09:39 Dermatitis pregabalin [From Lyrica] Allergy Intermediate erythema Verified 12/30/21 09:39 chlorhexidine Allergy Mild RASH Verified 12/30/21 09:39 cyclosporine AdvReac Intermediate hypertensio Verified 12/30/21 09:39 n niacin AdvReac Unknown pt unsure Verified 12/30/21 09:39 sulfamethoxazole AdvReac Unknown Diarrhea Verified 12/30/21 09:39 [From Bactrim] trimethoprim [From Bactrim] AdvReac Unknown Diarrhea Verified 12/30/21 09:39 FREE TEXT Allergy Intermediate contact Uncoded 12/30/21 09:39 dermatitis Home Medication Medication Instructions Recorded acetaminophen 500 mg tablet 2 tab PO PRN 12/15/12 (Acetaminophen Extra Strength) albuterol sulfate 90 mcg/actuation 2 puff INHALATION QID PRN puff 12/15/12 aerosol inhaler (Ventolin HFA) cyanocobalamin (vitamin B-12) 1,000 mcg PO 2 X /wk 12/15/12 1,000 mcg tablet (Vitamin B-12) aspirin 81 mg chewable tablet 81 mg PO DAILY #100 tab-cap 04/01/16 (Aspirin Low-Strength) simvastatin 40 mg tablet 40 mg PO DAILY tab-cap 07/08/16 menthol-zinc oxide 0.15 %-1 % 1 powder TP DAILY gm 12/27/18 topical powder (Gold Allen Medicated) calcipotriene 0.005 % topical cream 1 applic TP BID PRN 01/28/19 amlodipine 2.5 mg tablet 2.5 mg PO DAILY 05/25/19 budesonide-formoterol HFA 80 1 puff IH BID PRN gm 01/27/20 mcg-4.5 mcg/actuation aerosol inhaler (Symbicort) ketoconazole 2 % topical cream 1 applic TOPICAL BID PRN 06/15/20 famotidine 20 mg tablet 20 mg PO BID 12/25/21 fluticasone propionate 50 2 spray INTRANASAL DAILY 12/25/21 mcg/actuation nasal spray,suspension ketoconazole 2 % topical cream 1 applic TOPICAL BID 12/25/21 montelukast 10 mg tablet 10 mg PO DAILY 12/25/21 cetirizine 10 mg tablet 10 mg PO BID PRN 12/26/21 triamcinolone acetonide 0.1 % 1 applic TOPICAL BID g 12/27/21 topical cream Current Visit Medications: Current Medications Generic Name Dose Route Start Last Admin Trade Name Freq PRN Reason Stop Dose Admin Acetaminophen 1,000 mg 12/30/21 06:00 Acetaminophen 500 Mg Tab PO Q4H PRN PRN Miscellaneous Medication 0 ml 12/30/21 06:00 Prednisolone 1%, Moxifloxacin 0.5%, Nepafenac 0.1% 5ml Btl OD DIRECTED [facility] Miscellaneous Medication 0 ml 12/30/21 06:00 12/30/21 10:02 Tropicam./Phenyleph. 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 Pure hypercholesterolemia 02/06/06 E78.00 Hypertension I10 Metabolic syndrome X 09/29/11 E88.81 Hyponatremia 08/07/14 E87.1 Elevated blood pressure reading 04/01/16 R03.0 History of adenomatous polyp of colon Z86.010 Environmental allergies Z91.09 COPD (chronic obstructive pulmonary disease) J44.9 Dermatitis L30.9 Nuclear sclerotic cataract of left eye H25.12 Posterior subcapsular age-related cataract of left eye H25.042 Nuclear sclerotic cataract of right eye H25.11 Medical History Medical History (Updated 12/30/21 @ 09:37 by Elsie Chappell RN) Anxiety Cough Hernia pt reports hx bilateral hernia surgery 40 years ago High cholesterol Idiopathic peripheral neuropathy (09/29/11) feet numb; Umishankar; [place] 05/20;small fiber, NUMB>>PAIN Kidney stone (09/29/11) Low back pain with sciatica (09/29/11) Regular check-up (12/24/15) yearly in June Umbilical hernia (06/08/12) small, assymptomatic Wheeze Medical History Comments:: One false tooth removed, left at home Surgical History Surgical History (Updated 12/30/21 @ 09:36 by Elsie Chappell RN) Colonoscopy - IV Sedation (08/21/14) Dr Perez Endoscopic Carpal Tunnel release (04/14/17) [facility] Dr Ramos; both Endoscopic Carpal Tunnel release (04/21/17) [facility] Dr Ramos; both Hx of hernia repair Tobacco Smoking/Tobacco Use Status: Never Alcohol Alcohol Intake: current Alcohol intake frequency: holidays/special occasions only Alcohol type: beer Substance Use Substance use: Never Substance use type: does not use Vital Signs and Lab Results Vital Signs Most Recent Vital Signs in EMR: Most Recent Vital Signs Temp Pulse Resp BP Pulse Ox 36.5 C 64 16 155/84 H 97 12/30/21 09:52 12/30/21 09:52 12/30/21 09:52 12/30/21 09:52 12/30/21 09:52 Lab Results Blood Type / Crossmatch: No Data to Display Complete Blood Count: No Data to Display Complete Metabolic Panel: No Data to Display Liver Function Panel: No Data to Display Coagulation Panel: No Data to Display Cardiac Panel: No Data to Display Arterial Blood Gas: No Data to Display Venous Blood Gas: No Data to Display Pancreas Panel: No Data to Display Thyroid Panel: No Data to Display Infectious Disease: No Data to Display Blood Cultures: No Data to Display Toxicology Panel: No Data to Display Imaging and Studies Imaging and Studies Study information below may be from another EMR and interpreted by another provider. Please see original notes in EMR for more complete details. Pulmonary Function Summary: DATE OF SERVICE June 20, 2019 REQUESTING PROVIDER Jinny Meredith, LEAD MILITARY ANALYST INTERPRETATION OF STUDY Spirometry shows mild obstructive airways disease with no significant bronchodilator response. LUNG VOLUMES - Lung volumes show no evidence of restriction. DIFFUSION CAPACITY- Somewhat elevated. AIRWAY RESISTANCE - Elevated. IMPRESSION Mild obstructive airways disease with no significant bronchodilator response. This is associated with elevated diffusion capacity and airways resistance, this constellation of finding can be seen in asthma. If the diagnosis of asthma is in question proceeding with Methacholine challenge testing may prove to be useful. Anesthesia Assessment and Plan Anesthesia History Personal History: No History of Anesthesia Complications Family History: No Family History of Anesthesia Complications Exercise Tolerance Exercise Tolerance: Metabolic Equivalents>4 Pertinent Negatives Pertinent Negatives: No Symptoms of GERD Cardiac & Pulmonary Exam Cardiac Exam: Normal S1/S2 Heart Sounds Pulmonary Exam: Clear Bilateral Breath Sounds Implantable Cardiac Device Does patient have a Pacemaker or an ICD?: No Airway Exam Known Difficult Airway: No Mallampati Class: 1 Mouth Opening: Normal (> 3cm) Thyromental Distance: Greater than 3 cm Neck Range of Motion: Full ROM Neck Circumference: Normal Teeth Condition: Normal Dentition and Removable Dentures/Plates Upper Airway Comments: Gold cap #11 ASA Classification ASA Score: ASA 2 Emergency Case?: No NPO Status NPO Status: NPO Clears >2 hours, Solids >8 hours Anesthesia Plan Resuscitation Status: Full Code Anesthesia Technique: MAC Anesthesia Airway Planned: Natural Airway Monitors Used: Standard Monitors
[2021-12-30 10:11] VITALS: BMI 23.6
[2021-12-30] MEDS: Tetracaine 0.5% 4 ML BTL OD (10:28)
[2021-12-30] MEDS: Povidone-Iodine Ophth 30 ML BTL (10:28)
[2021-12-30] MEDS: Lidocaine 2% Jelly 6 ML SYR (10:29)
[2021-12-30] MEDS: Balanced Salt Soln.-PLUS 500 ML BAG (10:37)
[2021-12-30] MEDS: Duovisc Viscoelastic System EACH 1 EACH (10:38)
[2021-12-30 10:53] VITALS: BP 158/82; PULSE 61; RESP 16; TEMP 36.2; O2SAT 99
--- NOTE | 2021-12-30 10:55 | W.ANESPOSTOP ---
Postoperative Evaluation Date, Time and Location Date Performed: 12/30/21 Time Performed: 10:56 Patient Location: Day Surgery Unit Vital Signs Most Recent Imported Vital Signs: Most Recent Vital Signs Temp Pulse Resp BP Pulse Ox 36.5 C 64 16 155/84 H 97 12/30/21 09:52 12/30/21 09:52 12/30/21 09:52 12/30/21 09:52 12/30/21 09:52 Most Recent Manually Entered Vital Signs: Adult Blood Pressure: 158/82 Heart Rate: 59 Respirations: 10 Oxygen Saturation (%): 99 Temperature (C): 36.3 C Pain Score (0-10 Scale): 0 Pain Score Most Recent Pain Score: Most Recent Pain Score Pain Level 0 12/30/21 09:52 Assessment Mental Status: Awake (Alert & Oriented to Patient Baseline) Airway and Respiratory Function: Patent airway with normal (patient baseline) respiratory exam Cardiovascular Function: Hemodynamically Stable Hydration Status: Adequately Hydrated Nausea & Vomiting: No Nausea or Vomiting Pain: Pt. Denies Any Pain Peripheral Nerve Block: Patient did not receive a nerve block
[2021-12-30 10:56] VITALS: BP 158/82; PULSE 59; RESP 10; TEMPC 36.3; O2SAT 99
--- NOTE | 2021-12-30 10:56 | PDOC.DSDIS_ITS ---
Discharge Plan Disposition Patient Disposition: HOME Condition: Good Discharge Details Attending Provider: Ty Suh Primary Care Provider: Jinny Harper Home Meds and New Rx's Prescriptions: No Action Gold Allen Medicated 0.15-1 % powder 1 powder TP DAILY 0RF Label Comments: 12/20/18 Dr Berry amlodipine 2.5 mg tablet 2.5 mg PO DAILY 0RF Label Comments: Prescribed by SD albuterol sulfate [Ventolin HFA] 8 GM HFA aerosol inhaler 2 puff Inhalation QID PRN0RF Rx Instructions: per [facility] 18 GM INHALER cyanocobalamin (vitamin B-12) [Vitamin B-12] 1,000 MCG tablet 1,000 mcg PO 2 X /wk 0RF Label Comments: 01/14/17 PT. STATES PT.TAKES 400 MCG 1-2X A WEEK. acetaminophen [Acetaminophen Extra Strength] 500 MG tablet 2 tab PO PRN 0RF aspirin [Aspirin Low-Strength] 81 MG tablet,chewable 81 mg PO DAILY Qty: 100 3RF Rx Instructions: for cardiovascular prevention simvastatin 40 MG tablet 40 mg PO DAILY 0RF Rx Instructions: for cholesterol ([facility]) calcipotriene 0.005 % cream 1 applic TP BID PRN0RF Label Comments: until rash clears, then prn Rogelio Berry MD 01/27/19 [facility] [place] budesonide-formoterol [Symbicort] 80-4.5 mcg/actuation HFA aerosol inhaler 1 puff IH BID PRN0RF Label Comments: pt reports doiesnt use any more Rx Instructions: 01/26/20 Pulmonary Decreased to 1 puff BID. ketoconazole 2 % cream 1 applic topical BID PRN0RF Rx Instructions: 06/14/20 as directed triamcinolone acetonide 0.1 % cream 1 applic topical BID 0RF Rx Instructions: note dated 12/26/21 [facility] [place] famotidine 20 mg Tablet 20 mg PO BID 0RF montelukast 10 mg Tablet 10 mg PO DAILY 0RF ketoconazole 2 % Cream 1 applic TOPICAL BID 0RF fluticasone propionate 50 mcg/actuation [place],Suspension 2 spray INTRANASAL DAILY 0RF Label Comments: pt reports taking only 1 spray cetirizine 10 mg Tablet 10 mg PO BID PRN0RF Discharge Instructions Stand Alone Forms: Post-op Topical Cataract, Press Ganey (DSU) Discharge Orders Discharge Orders: Discharge Order (Routine); Ordered 12/30/21 Ordered By: Ty Suh DS: Diagnosis Discharge Diagnosis (1) Nuclear sclerotic cataract of right eye: Status: Resolved
--- NOTE | 2021-12-30 10:57 | ROE_ITS ---
Date of service: 12/30/21 Time of Service: 10:58 Operative Note Operative Note DATE OF PROCEDURE: 12/30/21 PRE-OP DIAGNOSIS: Nuclear cataract, right eye POST-OP DIAGNOSIS: same PROCEDURE: Cataract extraction using phacoemulsification with intraocular lens implant, right eye SURGEON: Ty Suh ANESTHESIA TYPE: Local By Surgeon and MAC Refer to Anesthesia Record ESTIMATED BLOOD LOSS: 0 PATHOLOGY: none sent COMPLICATIONS: None Patient was transported to: same day Patient's condition: stable Implants: Long & Long/KRANTHI Tecnis [id number] Indications: Progressive visual loss due to cataract, right eye Procedure Description: CATARACT SURGERY OPERATIVE REPORT PREOPERATIVE DIAGNOSIS: 1. Nuclear cataract, right eye POSTOPERATIVE DIAGNOSIS: Same OPERATION: 1. Cataract extraction using phacoemulsification with posterior chamber intraocular lens implant, right eye. IOL: IOL Manager Contact/Model: Long & Long / KRANTHI [employer]ecnis [id number] IOL Power: + 19.0 diopters IOL Serial Number: [id number] Optic Diameter: 6.0mm Haptic/Overall Diameter: 13.0mm PHACO INFO: [facility] Vision System with OZil and Active Fluidics Cumulative Dispersed Energy (CDE): 12.34 seconds SURGEON: Ty Suh MD, KATHRIN ANESTHESIA: Monitored Anesthesia Care (MAC), with local sub-tenon's anesthetic infiltration COMPLICATIONS: None SPECIMENS: None INDICATIONS FOR PROCEDURE: The patient is a 81-year-old gentleman with history of diminished visual acuity in his right eyes secondary to the development of nuclear cataract. He is significantly symptomatic that he desires cataract surgery and attempt to improve and maximize his vision. PROCEDURE: The correct surgical eye was identified and marked as the right eye and the pupil was dilated in the preoperative area using mydriatics and cycloplegics. The dilated pupil size was 7.0 mm. He elected to proceed without oral sedation. The patient was brought to the operating room where cardiopulmonary monitoring was instituted and surgical time-out was performed, confirming the correct operative eye and IOL power. Topical anesthesia was administered and ophthalmic povidone-iodine 5% was instilled into the conjunctival fornices. Lidocaine gel was applied to the cornea and the ekaterina-ocular area was prepped with Betadine 10% solution and draped in the usual sterile fashion for intraocular surgery, including an aperture drape. A Tegaderm transparent film dressing was cut in half and used to cover the lashes and lid margins. Care was taken to sequester the lashes and lid margins under the Tegaderm dressing. A lid speculum was placed between the lids of the operative eye and the Kwan Lux[employer] Revalia operating microscope was maneuvered into position. Fredy scissors were then used to make a conjunctival buttonhole approximately 6mm posterior to the limbus in the inferonasal quadrant. Blunt dissection was carried out to expose bare sclera, and a blunt-tipped sub-tenon?s anesthesia cannula was introduced and passed posteriorly along the globe where non-preser marbella plain lidocaine was injected into posterior sub-Tenon?s space. A sideport knife was used to make a paracentesis port inferotemporally. Intraocular phenylephrine/lidocaine was injected into the anterior chamber. The anterior chamber was filled with viscoelastic. A 2.4mm keratome knife was used to create a half-thickness groove at the limbus and then to construct a three-plane near- clear corneal tunnel extending 2.0mm into clear cornea superiortemporally. A flap was raised on the anterior capsule and capsulorhexis forceps were used to complete a continuous curvilinear capsulorhexis of 5.0 mm. Balanced salt solution was then used to perform cortical cleaving hydrodissection and nuclear hydrodelineation until the lens could be freely rotated within the capsular bag. The lens nucleus was then disassembled and removed within the capsular bag and iris plane using phacoemulsification. Residual cortical material was removed using the I/A handpiece. The posterior capsule was carefully polished to remove as much residual lens epithelial cells as safely possible. The capsular bag was then inflated and the anterior chamber deepened with viscoelastic. The lens implant described above was inserted into the capsular bag using the KRANTHI [place] Injector. A Kuglen hook was used to dial the IOL into position. Residual viscoelastic was then removed first from posterior to the IOL, then from the anterior chamber using the I/A handpiece. The lens implant was noted to center nicely within the capsular bag. The incisions were stromally hydrated, and the anterior chamber was reformed using BSS. Then 0.5cc of moxifloxacin 1.0mg/ml were injected into the capsular bag and anterior chamber. The incisions were checked with a Weck spear and found to be secure. Several drops of ophthalmic povidone-iodine 5% were then applied to the eye followed by two drops of Imprimis combination prednisolone/moxifloxacin/nepafenac solution. The drapes were removed and a clear plastic protective eye shield was placed over the eye. The patient was then returned to [facility] in stable condition.
== END 2021-12-30 11:11 | disposition home or self-care (01) ==
PROVIDERS: PCP Nurse Practitioner; Visit Provider Ophthalmology
PROC: (CPT 66984; principal; 2021-12-30 10:30)
DX: H25.11 Age-related nuclear cataract, right eye (principal); J44.9 Chronic obstructive pulmonary disease, unspecified; E88.81 Metabolic syndrome and other insulin resistance
CPT/HCPCS: 66984; V2632

== ENCOUNTER 2025-04-19 01:23 | Outpatient (CLI) | payer OTHER, SELFPAY ==
--- NOTE | 2025-04-19 07:30 | DI.US_ITS ---
APPROVED REPORT EXAM: Comprehensive 2D, Doppler, and color-flow Echocardiogram Patient Location: Out-Patient Ceramic Tile Mechanic: Mere Galindo RDCS (AE) Indications: Murmur Other Information Study Quality: Adequate Conclusion Normal left ventricular wall thickness and chamber size. Ejection fraction is 60%. Wall motion is normal Normal right ventricular size and function Moderately dilated left atrium. Mildly dilated right atrium The aortic valve is sclerotic and trileaflet without hemodynamically significant stenosis or regurgitation Mild mitral annular calcification. Mild mitral regurgitation Estimated right ventricular systolic pressure is 31 mmHg Wall motion Left Ventricle The left ventricle is normal size. The left ventricular systolic function is normal. The left ventricular ejection fraction is within the normal range. There is normal left ventricular wall thickness. There is normal LV segmental wall motion. There is no ventricular septal defect visualized. LVEF is 60%. Right Ventricle The right ventricle is normal size. The right ventricular systolic function is normal. Atria Left atrium is moderately dilated. Right atrium is mildly dilated. The interatrial septum is intact with no evidence for an atrial septal defect. Aortic Valve The Aortic valve is sclerotic. Aortic valve is trileaflet. No hemodynamically significant valvular aortic stenosis. No aortic regurgitation is present. Mitral Valve Mild mitral annular calcification. No evidence of mitral valve stenosis. Mild mitral regurgitation. Tricuspid Valve The tricuspid valve is normal in structure. There is no tricuspid valve stenosis. Mild tricuspid regurgitation. The RVSP is 30.9 mmHg. Pulmonic Valve The pulmonary valve is normal in structure. There is no pulmonic valvular stenosis. Trace pulmonic regurgitation. Great Vessels The aortic root is normal in size. The ascending aorta is normal in size. Aortic arch is not well visualized. IVC is normal in size and collapses >50% with inspiration. Pericardium There is no pericardial effusion. 2D Dimensions IVSD d PLAX 1.04 cm M: 0.6-1.2 Ao Root d 2.97 cm M: 3.1 - 3.7 LVPW d PLAX 1.00 cm M: 0.6 - 1.2 Ao Asc Diam d 3.35 cm M: 2.6 - 3.4 LVID d PLAX 4.70 cm M: 4.2 - 5.8 LVDs 3.25 cm M: 2.5 - 4.0 LV EF Teichholz 58.1 % FS 30.59 % LV EDV (Teich) 101.2 mL LV ESV (Teich) 42.4 mL M-Mode TAPSE 2.67 cm (M/F) >1.7 Auto EF LV EDV A4C 134.9 mL LV EDV A2C 139.3 mL LV EDV BP 141.0 mL LV ESV A4C 56.5 mL LV ESV A2C 56.4 mL LV ESV BP 55.7 mL LVEF(%) A4C 58.1 % LVEF(%) A2C 59.5 % LVEF(%) BP 60.5 % LV SV A4C 78.3 ml LV SV A2C 82.9 ml LV SV BP 85.3 ml LV CO A4C 3.8 L/min LV CO A2C 4.2 L/min LV CO BP 4.0 L/min HR A4C 48.44 BPM HR A2C 51.21 BPM LV EDV Index (BP) LA Volume LA Length A4C 5.5 cm LA Length A2C 5.2 cm LA Area A4C s 21.32 cm2 LA Area A2C s 23.33 cm2 LA Vol A4C A-L 70.09 mL LA Vol A2C A-L 88.44 mL LA Vol Biplane A-L 80.8 mL LA Vol/BSA A4C A-L LA Vol/BSA A2C A-L LA Vol/BSA BP A-L 44.2 mL/m2 LA Vol A4C MOD 66.0 mL LA Vol A2C MOD 81.4 mL LA Vol BP MOD 74.9 mL RA Volume RA Area A4C 12.6 cm2 RA ESV A4C (A-L) 28.6mL RA Vol/BSA A4C A-L RA Length A4C 4.7 cm RA ESV A4C (MOD) 28.5mL LV Diastology MV E' medial 0.070 (>0.07 m/s) MV E Vmax 0.75 (0.4-1.3 m/s) MV E/E' MED 10.75 (<14) MV A Vmax 0.90 (0.4-1.3 m/s) MV E' lateral 0.092 (>0.1 m/s) E/A Ratio 0.8 MV E/E' LAT 8.14 (<14) MV E' Average 0.081 m/s MV E/E'(average) 9.27 Aortic Valve AoV Vmax 2.02 m/s LVOT Vmax 1.12 m/s AoV Peak Grad 16.4 mmHg LVOT Peak Grad 5.1 mmHg AoV Area (Vmax) 1.90 cm2 LVOT VTI 0.277 m AoV VTI 0.510 m LVOT Mean Grad 2.7 mmHg AoV Mean Jacques. 1.38 m/s LVOT SV 94.32 mL AoV Mean Grad 8.8 mmHg LVOT Diam s 2.05 cm AoV Area (VTI) 1.85 cm2 AV Regurg Peak Gr. 16.37 mmHg Velocity Ratio 0.55 Mitral Valve MV DT 290 (160-240 msec) MV Vmax TIPS 0.81 m/s MV Mean Grad 0.8 (<2mmHg) MV VTI 0.311 m Pulmonary Valve PV Vmax 0.87 (0.5-1.5 m/s) RVOT Vmax 0.77 m/s PV Peak Grad 3.0 mmHg RVOT Peak Gr. 2.4 mmHg PV Mean Jacques 0.54 m/s RVOT VTI 0.189 m PV Mean Grad 1.4 mmHg RVOT Mean Gr. 1.3 mmHg Tricuspid Valve RA Pressure 3.00 mmHg TR Vmax 2.64 m/s TV S' 0.16 m/s TR Peak Grad 27.8 mmHg RVSP (TR) 30.9 mmHg
== END 2025-04-19 01:43 ==
PROVIDERS: PCP Nurse Practitioner; Visit Provider Internal Medicine Cardiovascular Disease
DX: R01.1 Cardiac murmur, unspecified (principal); I08.0 Rheumatic disorders of both mitral and aortic valves
CPT/HCPCS: 93306